=== PATIENT | male | born 1980 | race Caucasian/White ===

== ENCOUNTER 2021-11-07 22:21 | Emergency (ER) | payer OTHER ==
[2021-11-08] MEDS ORDERED: CLEOCIN HCL300 MG PO (01:19)
== END 2021-11-08 01:46 | disposition home or self-care (01) ==
LOC: FER 22:21
DX: S61.211A Laceration without foreign body of left index finger without damage to nail, initial encounter (principal); W26.8XXA Contact with other sharp object(s), not elsewhere classified, initial encounter; Y92.89 Other specified places as the place of occurrence of the external cause; Y99.0 Civilian activity done for income or pay
CPT/HCPCS: 73140